=== PATIENT | female | born 1985 | race Caucasian/White ===

== ENCOUNTER 2018-07-21 13:27 | Observation (INO) ==
--- NOTE | 2018-07-21 13:55 | Emergency Department Note ---
Disposition Clinical Impression: Suicidal ideation, Depression Disposition: Admitted As Inpatient Condition: Good Referrals: Hermelinda Arias MD [Primary Care Provider] - Forms: ED Satisfaction Letter Time of Disposition: 17:33 General Adult HPI - General Chief complaint: ED Psychiatric Symptoms Stated complaint: "Very Anxious/Thinks Meds Needs Changed" Time Seen by Provider: 07/21/18 13:37 Source: patient Mode of arrival: ambulatory - History of Present Illness HPI Narrative: This is a 33-year-old female with a history of depression and anxiety who comes to the emergency department stating that she is not sleeping, having had approximate 4 hours of sleep the last 5 days, feels very depressed, and nearly pulled her car in front of a semi-4 days ago in a suicide attempt. She says that both she and the truck hop corrected at the last minute. She states that her doctor had switched her from citalopram 40 mg, bupropion 150 mg, and olanzapine 10 mg, to citalopram 20 mg, trazodone, sertraline, prazosin and olanzapine 3 weeks ago. She says she is very discouraged because she feels much worse than she did before. She feels nervous, cannot sleep, and is very depressed. She states she does not care anymore. She denies active suicidal or homicidal ideation Pain Scale: 0 - Related Data Home Medications Medication Instructions Recorded Confirmed Citalopram [CeleXA] 20 mg PO DAILY 07/21/18 07/21/18 OLANZapine [Zyprexa] 10 mg PO DAILY 07/21/18 07/21/18 Prazosin [Minipress] 1 mg PO DAILY 07/21/18 07/21/18 Sertraline [Zoloft] 50 mg PO DAILY 07/21/18 07/21/18 traZODone [TraZODone] 50 mg PO HS 07/21/18 07/21/18 Allergies Allergy/AdvReac Type Severity Reaction Status Date / Time tramadol Allergy Hives Verified 06/05/18 12:40 All systems ED: reviewed and negative except as stated. Psychiatric: Reports: anxiety, depression, other (manic) Past Medical History - Past Medical History Medical history: Reports: no medical history Psychiatric history: Reports: anxiety, depression, prior suicide attempt - Social History Smoking Status: Current every day smoker Smokeless Tobacco Status: No Alcohol use: Reports: none Drug use: Reports: none Physical Exam - General Limitations: no limitations General appearance: alert, anxious - Head Head exam: atraumatic, normocephalic, normal inspection - Chest Chest inspection: Present: normal inspection, symmetric chest wall rise - Respiratory Respiratory exam: Present: normal lung sounds bilaterally - Cardiovascular Cardiovascular exam: Present: regular rate, normal rhythm, normal heart sounds - Abdominal Exam Abdominal exam: Present: soft, Non-Tender. Absent: tenderness, distention, guarding, rebound, rigidity - Extremities Exam Extremities exam: Present: normal inspection, full ROM, pedal edema (Nonpitting bilateral). Absent: tenderness - Back Exam Back exam: Absent: CVA tenderness (R), CVA tenderness (L) - Neurological Exam Neurological exam: Present: alert, oriented X3 - Psychiatric Psychiatric exam: Present: depressed, anxious, manic. Absent: homicidal ideation, suicidal ideation - Skin Skin exam: Present: warm, dry, intact, normal color Course Course Narrative: This is a 33-year-old female with symptoms most consistent with a manic episode. Vital Signs Temperature 98.1 F 07/21/18 13:30 Pulse Rate 92 07/21/18 13:30 Respiratory Rate 18 07/21/18 13:30 Blood Pressure 148/84 07/21/18 13:30 O2 Sat by Pulse Oximetry 98 07/21/18 13:30 Temperature 98.1 F 07/21/18 13:44 Pulse Rate 92 07/21/18 13:44 Respiratory Rate 18 07/21/18 13:44 Blood Pressure 148/84 07/21/18 13:44 O2 Sat by Pulse Oximetry 98 07/21/18 13:44 Oxygen Delivery Oxygen Delivery Room Air Medical Decision Making - [facility] Narrative Medical decision making narrative: This is a 33-year-old female with depression not sleeping well and with symptoms most consistent with bipolar disorder. In addition, she had what sounds like a suicide attempt 4 days ago. She was seen by psychiatry with a recommendation of admission to the hospital. - Lab Data Lab results narrative: CBC was unremarkable BMP was unremarkable UA was unremarkable Salicylates were low Acetaminophen was low Alcohol was low Drug screen was negative Result diagrams: 07/21/18 14:01 07/21/18 14:01 Lab Results 07/21/18 07/21/18 07/21/18 Range/Units 14:01 14:01 14:31 WBC 9.5 (4.3-11.1) K/mcL RBC 4.28 (3.82-4.97) M/mcL Hgb 12.0 (11.5-15.4) g/dL Hct 36.4 (35.3-44.9) % MCV 85.0 (83.0-100.0) fL MCH 28.0 (28.0-33.3) pg MCHC 33.0 (31.6-35.5) g/dL RDW 14.1 (11.5-14.5) % Plt Count 335 (140-400) K/mcL MPV 9.6 (9.4-12.4) fL Immature Gran % 0.3 (0-4) % Seg Neutrophils % 69.3 % Lymphocytes % 21.9 % Monocytes % 6.0 % Eosinophils % 1.9 % Basophils % 0.6 % Neutrophils # 6.6 (1.6-8.9) K/mcL Lymphocytes # 2.1 (0.6-4.6) K/mcL Monocytes # 0.6 (0.0-1.3) K/mcL Eosinophils # 0.2 (0.0-0.6) K/mcL Basophils # 0.1 (0.0-0.2) K/mcL Sodium 137 (136-145) mEq/L Potassium 4.1 (3.5-5.1) mEq/L Chloride 104 (98-107) mEq/L Carbon Dioxide 23 (23-29) mEq/L BUN 6 (6-20) mg/dL Creatinine 0.59 L (0.60-1.20) mg/dL Est GFR ( Amer) > 60 (> 60) Est GFR (Non-Af Amer) > 60 (> 60) BUN/Creatinine Ratio 10 (6-26) Glucose 93 (70-105) mg/dL Calculated Osmolality 281 (280-300) Calcium 9.3 (8.6-10.3) mg/dL Urine Color Yellow (Yellow) Urine Clarity Clear (Clear) Urine pH 6.5 (5.0-8.0) pH Units Ur Specific [place] 1.006 L (1.010-1.025) Urine Protein Negative (Neg-Trace) mg/dL Urine Glucose (UA) Normal (Normal) mg/dL Urine Ketones Negative (Negative) mg/dL Urine Blood Negative (Negative) Urine Nitrite Negative (Negative) Urine Bilirubin Negative (Negative) Urine Urobilinogen Normal (Normal) mg/dL Ur Leukocyte Esterase Negative (Negative) Salicylates < 2.5 L (15.0-30.0) mg/dL Urine Opiates Screen (Ailcci=085) ng/mL Acetaminophen < 10 L (10-20) mcg/mL Ur Barbiturates Screen (Aphjgm=065) ng/mL Ur Phencyclidine Scrn (Cutoff=25) ng/mL Ur Amphetamines Screen (Cggsnx=0107) ng/mL U Benzodiazepines Scrn (Zlgsip=963) ng/mL Urine Cocaine Screen (Cutoff= 300) ng/mL U Marijuana (THC) Screen (Cutoff = 50) ng/mL Ur Drug Screen Interp Ethyl Alcohol < 10 (Less than 10) mg/dL 07/21/18 Range/Units 14:31 WBC (4.3-11.1) K/mcL RBC (3.82-4.97) M/mcL Hgb (11.5-15.4) g/dL Hct (35.3-44.9) % MCV (83.0-100.0) fL MCH (28.0-33.3) pg MCHC (31.6-35.5) g/dL RDW (11.5-14.5) % Plt Count (140-400) K/mcL MPV (9.4-12.4) fL Immature Gran % (0-4) % Seg Neutrophils % % Lymphocytes % % Monocytes % % Eosinophils % % Basophils % % Neutrophils # (1.6-8.9) K/mcL Lymphocytes # (0.6-4.6) K/mcL Monocytes # (0.0-1.3) K/mcL Eosinophils # (0.0-0.6) K/mcL Basophils # (0.0-0.2) K/mcL Sodium (136-145) mEq/L Potassium (3.5-5.1) mEq/L Chloride (98-107) mEq/L Carbon Dioxide (23-29) mEq/L BUN (6-20) mg/dL Creatinine (0.60-1.20) mg/dL Est GFR ( Amer) (> 60) Est GFR (Non-Af Amer) (> 60) BUN/Creatinine Ratio (6-26) Glucose (70-105) mg/dL Calculated Osmolality (280-300) Calcium (8.6-10.3) mg/dL Urine Color (Yellow) Urine Clarity (Clear) Urine pH (5.0-8.0) pH Units Ur Specific [place] (1.010-1.025) Urine Protein (Neg-Trace) mg/dL Urine Glucose (UA) (Normal) mg/dL Urine Ketones (Negative) mg/dL Urine Blood (Negative) Urine Nitrite (Negative) Urine Bilirubin (Negative) Urine Urobilinogen (Normal) mg/dL Ur Leukocyte Esterase (Negative) Salicylates (15.0-30.0) mg/dL Urine Opiates Screen Negative (Voegvc=454) ng/mL Acetaminophen (10-20) mcg/mL Ur Barbiturates Screen Negative (Oxyolz=424) ng/mL Ur Phencyclidine Scrn Negative (Cutoff=25) ng/mL Ur Amphetamines Screen Negative (Zydpwy=5828) ng/mL U Benzodiazepines Scrn Negative (Mtipiq=203) ng/mL Urine Cocaine Screen Negative (Cutoff= 300) ng/mL U Marijuana (THC) Screen Negative (Cutoff = 50) ng/mL Ur Drug Screen Interp See Below Ethyl Alcohol (Less than 10) mg/dL Critical Care Time Critical Care Time: No
[2018-07-21 14:22] LABS: Basophils # 0.1 K/mcL (0.0-0.2); Basophils % 0.6 %; Eosinophils # 0.2 K/mcL (0.0-0.6); Eosinophils % 1.9 %; Hematocrit 36.4 % (35.3-44.9); Immature Granulocytes % 0.3 % (0-4); Lymphocytes # 2.1 K/mcL (0.6-4.6); Lymphocytes % 21.9 %; Mean Platelet Volume 9.6 fL (9.4-12.4); Monocytes # 0.6 K/mcL (0.0-1.3); Neutrophils # 6.6 K/mcL (1.6-8.9); Platelet Count 335 K/mcL (140-400); Red Blood Count 4.28 M/mcL (3.82-4.97); Red Cell Distribution Width 14.1 % (11.5-14.5); Segmented Neutrophils % 69.3 %
[2018-07-21 14:47] LABS: Bilirubin,Urine Negative (Negative); Blood,Urine Negative (Negative); Clarity,Urine Clear (Clear); Color,Urine Yellow (Yellow); Glucose,Urine (UA) Normal (Normal); Ketones,Urine Negative (Negative); Leukocyte Esterase,Urine Negative (Negative); Nitrite,Urine Negative (Negative); PH,Urine 6.5 pH Units (5.0-8.0); Protein,Urine Negative (Neg-Trace); Specific Gravity,Urine 1.006 (1.010-1.025); Urobilinogen,Urine Normal (Normal)
[2018-07-21 14:49] LABS: Acetaminophen < 10 mcg/mL (10-20); BUN/Creatinine Ratio 10 (6-26); Blood Urea Nitrogen 6 mg/dL (6-20); Calcium 9.3 mg/dL (8.6-10.3); Carbon Dioxide 23 mEq/L (23-29); Chloride 104 mEq/L (98-107); Ethanol < 10 mg/dL (Less than 10); Glucose 93 mg/dL (70-105); Osmolality,Calculated 281 (280-300); Potassium 4.1 mEq/L (3.5-5.1); Salicylate < 2.5 mg/dL (15.0-30.0); Sodium 137 mEq/L (136-145); eGFR For Non-African Americans > 60 (> 60)
[2018-07-21 14:55] LABS: Amphetamine Screen,Urine Negative ng/mL (Cutoff=1000); Barbiturate Screen,Urine Negative ng/mL (Cutoff=200); Benzodiazepines Screen,Urine Negative ng/mL (Cutoff=200); Cannabinoid Screen,Urine Negative ng/mL (Cutoff = 50); Cocaine Screen,Urine Negative ng/mL (Cutoff= 300); Opiate Screen,Urine Negative ng/mL (Cutoff=300); Phencyclidine Screen,Urine Negative ng/mL (Cutoff=25)
[2018-07-21] MEDS ORDERED: *HR* LORazepam 2 MG/ML VIAL IM PRN (18:30)
[2018-07-21] MEDS ORDERED: Ibuprofen 400 MG TABLET PO PRN (18:30)
[2018-07-21] MEDS ORDERED: *HR* LORazepam 1 MG TABLET PO PRN (18:30)
[2018-07-21] MEDS ORDERED: traZODone 50 MG TABLET PO PRN (18:30)
[2018-07-21] MEDS ORDERED: Haloperidol Lactate 5 MG/ML VIAL IM PRN (18:30)
[2018-07-21] MEDS ORDERED: MOM Conc 10 ML UD.LIQ PO PRN (18:30)
[2018-07-21] MEDS ORDERED: Mag Hydrox/Al Hydrox/Simeth 30 ML UDC PO PRN (18:30)
[2018-07-21] MEDS: hydrOXYzine pamoate 25 MG CAPSULE PO PRN (20:46)
[2018-07-21] MEDS ORDERED: traZODone 50 MG TABLET PO SCH (21:00)
[2018-07-22] MEDS ORDERED: OLANZapine 10 MG TAB.RAPDIS PO SCH (09:00)
[2018-07-22] MEDS: hydrOXYzine pamoate 25 MG CAPSULE PO PRN (09:08)
[2018-07-22 09:15] VITALS: BP 138/97
--- NOTE | 2018-07-22 09:24 | Discharge Summary ---
Date of Encounter: 07/22/18 Time of Encounter: 09:22 Diagnosis - Discharge Diagnosis (1) Major depression Status: Acute Qualifiers: Major depression recurrence: recurrent Active/Remission status: currently active Major depression episode severity: moderate Qualified Code(s): F33.1 - Major depressive disorder, recurrent, moderate (2) Post traumatic stress disorder Status: Acute Medications - Discharge Medications Prescriptions: hydrOXYzine pamoate [HydrOXYzine Pamoate] 25 mg PO TID PRN #42 capsule PRN Reason: Anxiety OLANZapine [Zyprexa] 10 mg PO DAILY 07/21/18 [History] Prazosin [Minipress] 1 mg PO DAILY 07/21/18 [History] Sertraline [Zoloft] 50 mg PO DAILY 07/21/18 [History] traZODone [TraZODone] 50 mg PO HS 07/21/18 [History] hydrOXYzine pamoate [HydrOXYzine Pamoate] 25 mg PO TID PRN #42 capsule 07/22/18 [Rx] 3 Allergy/AdvReac Type Severity Reaction Status Date / Time tramadol Allergy Hives Verified 06/05/18 12:40 Provider Date of admission: 07/21/18 17:38 Primary care physician: Hermelinda Arias MD Discharging clinician: Ritika Espinoza Psychiatry Exam - Constitutional Vitals: Temp Pulse Resp BP Pulse Ox 97.7 F 99 20 138/97 98 07/22/18 09:00 07/22/18 09:00 07/22/18 09:00 07/22/18 09:00 07/21/18 13:44 General appearance: age & developmentally appropriate, well-groomed, well- nourished - Musculoskeletal Gait: normal Station: relaxed Strength & Tone: normal for patient - Psychiatric Patient Orientation: Yes Person, Yes Time, Yes Place Level of alertness: Alert Behavior: calm, cooperative Psychomotor activity: Normal Eye Contact: Maintains Eye Contact Mood Description: Euthymic/stable Affect description: congruent with mood, full range Speech Volume: Normal Speech pattern: normal rate, normal rhythm, normal tone, fluent, spontaneous Language & Vocabulary: consistent with education Thought Process: Linear, Goal Oriented Thought Content: No Suicidal ideation, No Homicidal ideation, No Overt delusions Perceptual Disturbances: No Auditory hallucinations, No Visual hallucinations Attention Span Ability: Capable of Focused Attention Memory Description: Grossly Intact Patient Reliability: Reliable Historian Fund of knowledge: Yes abstraction ability, Yes aware of current events Intelligence Estimate: Average Judgment: Fair Insight: Partial Hospital Course Hospital course: Ms. Iverson is a 33 year old female who was admitted as a 24hr obs secondary to SI. Today client states she is not suicidal. Misses her kids. Has never been inpatient before and wants to go home. Very bright and reactive. Social on unit with peers. Future oriented. No outward signs of depression. Client reports she has been seeing her PCP for depression and PTSD and her PCP wanted her to see a psychiatrist. Saw psychiatrist for first time two weeks ago and entire med regimen changed. Her Wellbutrin was stopped and her Celexa was decreased. Zoloft, Trazodone, and Prazosin were all added. Client states changes sent her into a tailspin and she started having anxiety attacks. Given prn Vistaril here in the hospital and this seems to have really helped. Client states she slept better last night than she has in a long time. Scheduled to follow up with PCP this week. Has enough meds at home to get her through appointment. Will discharge her with a small amount of Vistaril. Client has a strong support system. Lives with fiancee and children. Speaks frequently with disability insurance hearing officer and nurse at her PCP's office. Client feels safe to leave. - Time Spent with Patient Total time spent providing and/or coordinating discharge services: Assessment and Plan - Patient/Caregiver Discharge Instructions Activity: resume usual activities as tolerated Diet: regular diet - Follow up Plan Follow up with: Hermelinda Arias MD [Primary Care Provider] - Functional capacity at discharge: independent ambulation Overall status at discharge: Stable Disposition: Home, Self-Care Quality - Multiple Antipsychotics Patient discharged on 2 or more antipsychotic medications: No Procedures - Procedures Procedures: Medication Management, Crisis Stabilization, Supportive Therapy, Group Therapy
== END 2018-07-22 10:35 | disposition home or self-care (01) ==
LOC: 1ANU 13:27 → EMEROOARM 13:27 → 1ANU 18:50
PROVIDERS: ADMIT Psychiatry & Neurology Forensic Psychiatry; ATTEND Psychiatry & Neurology Forensic Psychiatry

== ENCOUNTER 2022-03-07 05:12 | Observation (INO) ==
[2022-03-07] MEDS ORDERED: Isovue-370 500 ML BOTTLE IVP ONE (05:55)
[2022-03-07 05:56] LABS: Basophils # 0.1 K/mcL (0.0-0.2); Basophils % 0.7 %; Eosinophils # 0.3 K/mcL (0.0-0.6); Eosinophils % 2.5 %; Hematocrit 40.3 % (35.3-44.9); Hemoglobin 13.2 g/dL (11.5-15.4); Immature Granulocytes % 0.3 % (0-4); Lymphocytes # 2.8 K/mcL (0.6-4.6); Lymphocytes % 27.8 %; Mean Corpuscular HGB Conc 32.8 g/dL (31.6-35.5); Mean Corpuscular Hemoglobin 28.6 pg (28.0-33.3); Mean Corpuscular Volume 87.2 fL (83.0-100.0); Mean Platelet Volume 9.8 fL (9.4-12.4); Monocytes # 0.7 K/mcL (0.0-1.3); Monocytes % 6.8 %; Neutrophils # 6.3 K/mcL (1.6-8.9); Platelet Count 306 K/mcL (140-400); Red Blood Count 4.62 M/mcL (3.82-4.97); Red Cell Distribution Width 13.9 % (11.5-14.5); Segmented Neutrophils % 61.9 %; White Blood Count 10.1 K/mcL (4.3-11.1)
[2022-03-07] MEDS ORDERED: *HR* Labetalol 20 MG/4 ML SYRINGE IVP STA (05:56)
[2022-03-07 06:18] LABS: BUN/Creatinine Ratio 15 (6-26); Blood Urea Nitrogen 11 mg/dL (6-20); Carbon Dioxide 28 mEq/L (23-29); Chloride 103 mEq/L (98-107); Glucose 111 mg/dL (70-105); Osmolality,Calculated 284 (280-300); Potassium 3.5 mEq/L (3.5-5.1); Sodium 137 mEq/L (136-145); Troponin I < 0.03 ng/mL (< 0.04); eGFR For African Americans > 60 (> 60); eGFR For Non-African Americans > 60 (> 60)
[2022-03-07] MEDS ORDERED: Gadolinium Contrast Agent (WT Based) IV PRN (06:50)
[2022-03-07] MEDS ORDERED: *HR* LORazepam 2 MG/ML VIAL IVP ONE (08:10)
[2022-03-07] MEDS ORDERED: Perflutren Lipid Microsphere 1.3 ML in 0.9 % Sodium Chloride 8.7 ML IVP PRN (09:45)
[2022-03-07 11:10] VITALS: TEMP 97.5
[2022-03-07] MEDS ORDERED: Nicotine 21 MG PATCH.TD24 TD SCH (11:30)
[2022-03-07 13:51] LABS: Amphetamine Screen,Urine Negative ng/mL (Cutoff=1000); Barbiturate Screen,Urine Negative ng/mL (Cutoff=200)
[2022-03-07 13:55] LABS: Benzodiazepines Screen,Urine Positive ng/mL (Cutoff=300); Cannabinoid Screen,Urine Negative ng/mL (Cutoff = 50); Cocaine Screen,Urine Negative ng/mL (Cutoff= 300); Opiate Screen,Urine Negative ng/mL (Cutoff=300); Phencyclidine Screen,Urine Negative ng/mL (Cutoff=25)
[2022-03-07 14:57] VITALS: BP 141/93; PULSE 97; O2SAT 96
[2022-03-07] MEDS ORDERED: Acetaminophen 325 MG TABLET PO PRN (16:24)
[2022-03-08] MEDS ORDERED: *HR* Enoxaparin 40 MG/0.4 ML SYRINGE SQ SCH (06:00)
== END 2022-03-07 17:17 | disposition left against medical advice (07) ==
LOC: 3BNU 05:12 → EMEROOARM 05:12 → 3BNU 11:06
PROVIDERS: ADMIT Internal Medicine; ATTEND Internal Medicine